=== PATIENT | female | born 1960 | race Caucasian/White ===

== ENCOUNTER 2017-03-01 09:04 | Emergency (ER) | payer BC ==
[2017-03-01] MEDS ORDERED: Triamcinolone Acetonide 40 MG/ML 1 ML MDV IM ONE (09:05)
[2017-03-01 09:13] VITALS: BP 140/70
== END 2017-03-01 09:15 | disposition left against medical advice (07) ==
LOC: MW.ED 09:04
DX: Z53.21 Procedure and treatment not carried out due to patient leaving prior to being seen by health care provider (principal)
CPT/HCPCS: J3301

== ENCOUNTER 2019-07-16 09:30 | Emergency (ER) | payer BC ==
[2019-07-16 10:04] VITALS: BP 146/80; PULSE 104
[2019-07-16] MEDS ORDERED: Albuterol/Ipratropium 3.0-0.5 MG/3 ML Neb Soln NEB ONE ×2 (10:06→10:49)
[2019-07-16] MEDS ORDERED: predniSONE 20 MG Tab PO ONE (10:59)
--- NOTE | 2019-07-16 13:31 | EDM.PDOC ---
ED [facility] GENERAL MEDICAL PROBLEM - General Chief Complaint: Respiratory Problem Stated Complaint: ASTHMA Time Seen by Provider: 07/16/19 09:59 Source of Information: Reports: Patient History Limitations: Reports: No Limitations - History of Present Illness INITIAL COMMENTS - FREE TEXT/NARRATIVE: Patient 58-year-old female with past medical history of severe asthma. She is on numerous inhalers and oral steroids at baseline. Patient reports feeling some upper respiratory tract symptoms which seem to exacerbated her asthma. She states she feels congested in the nose and having sore throat. Patient reports increasing wheezing and shortness of breath at home. Denies anything that makes it better or worse. Patient reports poor peak flow at baseline. Patient denies any productive cough or fevers. She denies myalgias, vomiting, diarrhea. In addition to that documented in the HPI above, the additional ROS was obtained : Systems unable to be obtained secondary to patient's mental status I have reviewed the triage vital signs Const: Well nourished, well developed, appears stated age Eyes: PERRL, no conjunctival injection HENT: Contusion to the left forehead. NCAT, Neck supple without meningismus CV: RRR, Warm, well-perfused extremities RESP: Bilateral wheezes noted. Able to speak full sentences. GI: soft, non-tender, non-distended, no masses MSK: No gross deformities appreciated Skin: Warm, dry. No rashes Neuro: Alert, pediatric speech therapist II-XII grossly intact. Sensation and motor function of extremities grossly intact. Psych: Not agitated Assessment and plan: Patient is a 58-year-old female complaining of asthma exacerbation. Patient given several rounds of duo nebs in the ER and 40 mg prednisone. Patient reports improvement of symptoms. Patient still wheezing but no evidence of hypoxia on discharge. Patient offered to stay in the emergency department longer for further observation however she states she feels better and wished to go home. All questions addressed and answered. Patient understands risks and benefits. Patient given strict return precautions. Broad differential diagnosis considered including pneumonia, influenza, pulmonary embolism. However, based on clinical exam and patient's prolonged asthma history of believe this is consistent with asthma exacerbation. I do not believe this patient needs antibiotics or CT scan. - Related Data Allergies Allergy/AdvReac Type Severity Reaction Status Date / Time meperidine HCl [From Demerol] Allergy Cannot Verified 07/16/19 10:00 Remember Home Meds: Home Meds Fluticasone/Salmeterol [Advair 500-50] 1 puff INH BID 06/07/15 [History] Montelukast Sodium [Singulair] 10 mg PO DAILY 06/07/15 [History] Progesterone, Micronized [Progesterone] 100 mg PO BEDTIME 06/07/15 [History] estradioL [Climara] 1 patch TRDERM ASDIRECTED 06/07/15 [History] predniSONE [Prednisone] 10 mg PO DAILY 07/16/19 [History] predniSONE [Prednisone] 40 mg PO DAILY 4 Days #4 tablet 07/16/19 [Rx] Past Medical History HEENT History: Reports: Impaired Vision Respiratory History: Reports: Asthma 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 Other Oncologic History: Pre-cancerous tissue removed from cervix. - Infectious Disease History Infectious Disease History: Reports: Chicken Pox, Measles, Mumps - Past Surgical History GI Surgical History: Reports: Appendectomy, Cholecystectomy, Colonoscopy Social & Family History - Family History Family Medical History: Noncontributory Respiratory: Reports: Other (See Below) Other Respiratory Family Hisory: father: asbestos in the lungs. GI: Reports: Colon Polyps OBGYN: Reports: Endocrine/Metabolic: Reports: Diabetes, type II Oncologic: Reports: Breast, Prostate - Tobacco Use Smoking Status *Q: Never Smoker Second Hand Smoke Exposure: No - Caffeine Use Caffeine Use: Reports: None - Recreational Drug Use Recreational Drug Use: No ED ROS GENERAL - Review of Systems Review Of Systems: See Below ED EXAM, GENERAL - Physical Exam Exam: See Below Course - Vital Signs Last Recorded V/S: Last Vital Signs Temp 37.2 C 07/16/19 10:02 Pulse 104 H 07/16/19 10:02 Resp 18 07/16/19 10:02 BP 146/80 H 07/16/19 10:02 Pulse Ox 92 L 07/16/19 13:45 - Orders/Labs/Meds Meds: Medications Discontinued Medications Generic Name Dose Route Start Last Admin Trade Name Freq PRN Reason Stop Dose Admin Albuterol/Ipratropium 3 ml 07/16/19 10:06 07/16/19 10:16 Duoneb 3.0-0.5 Mg/3 Ml NEB 07/16/19 10:07 3 ml ONETIME ONE Administration Albuterol/Ipratropium 3 ml 07/16/19 10:49 07/16/19 10:56 Duoneb 3.0-0.5 Mg/3 Ml NEB 07/16/19 10:50 3 ml ONETIME ONE Administration Prednisone 40 mg 07/17/19 10:49 Prednisone PO 07/17/19 10:50 ONETIME ONE Prednisone 40 mg 07/16/19 10:59 07/16/19 11:05 Prednisone PO 07/16/19 11:00 40 mg ONETIME ONE Administration Departure - Departure Time of Disposition: 16:03 Disposition: Home, Self-Care 01 Clinical Impression: Asthma exacerbation - Discharge Information Prescriptions: predniSONE [Prednisone] 40 mg PO DAILY 4 Days #4 tablet Instructions: Asthma, Adult, [id number] Referrals: Neil Samuel MD [Primary Care Provider] - Forms: ED Department Discharge Additional Instructions: The following information is given to patients seen in the emergency department who are being discharged to home. This information is to outline your options for follow-up care. We provide all patients seen in our emergency department with a follow-up referral. The need for follow-up, as well as the timing and circumstances, are variable depending upon the specifics of your emergency department visit. If you don't have a primary care physician on staff, we will provide you with a referral. We always advise you to contact your personal physician following an emergency department visit to inform them of the circumstance of the visit and for follow-up with them and/or the need for any referrals to a consulting specialist. The emergency department will also refer you to a specialist when appropriate. This referral assures that you have the opportunity for follow-up care with a specialist. All of these measure are taken in an effort to provide you with optimal care, which includes your follow-up. Under all circumstances we always encourage you to contact your private physician who remains a resource for coordinating your care. When calling for follow-up care, please make the office aware that this follow-up is from your recent emergency room visit. If for any reason you are refused follow-up, please contact the [facility] Emergency Department at and asked to speak to the emergency department charge nurse. [facility] [address] [place] [address] [facility] [address] [place] [id number] Return to the ER immediately for worsening of breathing or any other concerns. Sepsis Event Note - Evaluation Sepsis Screening Result: No Definite Risk - Focused Exam Date Exam was Performed: 07/17/19 Time Exam was Performed: 12:18
[2019-07-17] MEDS ORDERED: predniSONE 20 MG Tab PO ONE (10:49)
== END 2019-07-16 13:46 | disposition home or self-care (01) ==
LOC: MW.ED 09:30
DX: J45.901 Unspecified asthma with (acute) exacerbation (principal); Z88.5 Allergy status to narcotic agent; Z79.51 Long term (current) use of inhaled steroids; Z79.52 Long term (current) use of systemic steroids
CPT/HCPCS: 94640; 99284; A9270; J7620-GY

== ENCOUNTER 2019-09-19 15:52 | Observation (INO) | payer BC ==
[2019-09-19] MEDS ORDERED: Albuterol/Ipratropium 3.0-0.5 MG/3 ML Neb Soln NEB ONE ×2 (16:07→17:08)
[2019-09-19] MEDS ORDERED: Dexamethasone 10 MG/ML SDV IVPUSH ONE (16:25)
--- NOTE | 2019-09-19 17:00 | CR ---
INDICATION: Cough. TECHNIQUE: Two-view chest. COMPARISON: March 05, 2017. FINDINGS: Clear lungs. Normal heart size and pulmonary vascularity. Mild spurring of the lower thoracic spine. Surgical clips right upper quadrant. IMPRESSION: No acute cardiopulmonary process identified. Dictated by Lionel Streeter MD @ Sep 19 2019 4:58PM Signed by Dr. Lionel Streeter @ Sep 19 2019 4:58PM
[2019-09-19 17:54] LABS: CARBON DIOXIDE,CO2 24.1 mmol/L (21.0-32.0); POTASSIUM,K 4.1 mmol/L (3.5-5.1)
[2019-09-19] MEDS ORDERED: Albuterol 6.7 GM Inhaler INH ONE ×2 (19:53→21:12)
--- NOTE | 2019-09-19 20:05 | EDM.PDOC ---
ED HPI GENERAL MEDICAL PROBLEM - General Chief Complaint: Respiratory Problem Stated Complaint: ASTHMA Time Seen by Provider: 09/19/19 16:00 - History of Present Illness INITIAL COMMENTS - FREE TEXT/NARRATIVE: 56 y/o female, history of asthma, presenting to ED for two weeks of worsening cough and dyspnea. similar to prior espisodes of asthma exacerbation. denied fever. mild pleuritic discomfort with cough. no leg swelling. no calf pain. patient reports she has been taking steroids that did not help, she is actually finishing off a taper. denies other associated symptoms. chest Pain Score (Numeric/FACES): 2 - Related Data Allergies Allergy/AdvReac Type Severity Reaction Status Date / Time meperidine HCl [From Demerol] Allergy Vomiting Verified 09/20/19 01:35 Home Meds: Home Meds Fluticasone/Salmeterol [Advair 500-50] 1 puff INH BID 06/07/15 [History] Montelukast Sodium [Singulair] 10 mg PO DAILY 06/07/15 [History] Progesterone, Micronized [Progesterone] 100 mg PO DAILY 06/07/15 [History] estradioL [Climara] 1 patch TRDERM ASDIRECTED 06/07/15 [History] predniSONE [Prednisone] 10 mg PO DAILY 07/16/19 [History] Albuterol/Ipratropium [DuoNeb 3.0-0.5 MG/3 ML] 3 ml .XX ASDIRECTED PRN 09/19/19 [History] Esomeprazole Magnesium [Nexium] 40 mg PO DAILY 09/19/19 [History] Sulfamethoxazole/Trimethoprim [Bactrim Ds Tablet] 1 each PO DAILY 09/19/19 [ History] buPROPion HCL [Bupropion HCl Sr] 100 mg PO DAILY 09/19/19 [History] Past Medical History HEENT History: Reports: Impaired Vision Respiratory History: Reports: Asthma 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 Other Oncologic History: Pre-cancerous tissue removed from cervix. - Infectious Disease History Infectious Disease History: Reports: Chicken Pox, Mumps - Past Surgical History GI Surgical History: Reports: Appendectomy, Cholecystectomy, Colonoscopy Social & Family History - Family History Family Medical History: Noncontributory Respiratory: Reports: Other (See Below) Other Respiratory Family Hisory: father: asbestos in the lungs. GI: Reports: Colon Polyps OBGYN: Reports: Endocrine/Metabolic: Reports: Diabetes, type II Oncologic: Reports: Breast, Prostate - Tobacco Use Smoking Status *Q: Never Smoker - Caffeine Use Caffeine Use: Reports: None - Recreational Drug Use Recreational Drug Use: No ED ROS GENERAL - Review of Systems Review Of Systems: Comprehensive ROS is negative, except as noted in HPI. ED EXAM, GENERAL - Physical Exam Exam: See Below Exam Limited By: No Limitations General Appearance: No Apparent Distress Ears: Normal External Exam Nose: Normal Inspection Head: Atraumatic Neck: Normal Inspection Respiratory/Chest: Rhonchi, Wheezing Cardiovascular: Normal Peripheral Pulses, Regular Rate, Rhythm, No Edema, No Gallop, No JVD, No Murmur, No Rub GI/Abdominal: Soft, Non-Tender Extremities: Normal Inspection, No Pedal Edema Neurological: Alert, Oriented Psychiatric: Normal Affect Skin Exam: Warm Course - Vital Signs Last Recorded V/S: Last Vital Signs Temp 96.2 F L 09/20/19 12:00 Pulse 105 H 09/20/19 12:00 Resp 20 09/20/19 12:00 BP 136/57 L 09/20/19 12:00 Pulse Ox 95 09/20/19 12:00 - Orders/Labs/Meds Orders: Active Orders 24 hr Category Date Time Status CORONAVIRUS COVID-19 PCR PHL [MREF] Stat Lab 09/19/19 19:11 Received Isolation [COMM] Routine Oth 09/19/19 18:45 Active Medication Orders Acetaminophen (Tylenol) 650 mg PO Q4H PRN PRN Reason: Pain (Mild 1-3)/fever Albuterol (Proventil Neb Soln) 2.5 mg NEB Q2H PRN PRN Reason: Shortness Of Breath/wheezing Albuterol/Ipratropium (Duoneb 3.0-0.5 Mg/3 Ml) 3 ml NEB Q6HRRT [facility] Last Admin: 09/20/19 11:36 Dose: 3 ml Bupropion HCl (Wellbutrin) 100 mg PO DAILY [facility] Last Admin: 09/20/19 08:38 Dose: 100 mg Lactated Ringer's (Ringers, Lactated) 1,000 mls @ 125 mls/hr IV ASDIRECTED [facility] Last Admin: 09/20/19 05:32 Dose: 125 mls/hr Infusion: 09/20/19 05:32 Dose: 125 mls/hr Admin: 09/19/19 21:36 Dose: 125 mls/hr Azithromycin 500 mg/ Sodium (Chloride) 250 mls @ 250 mls/hr IV DAILY [facility] Last Admin: 09/20/19 08:40 Dose: 250 mls/hr Infusion: 09/19/19 22:41 Dose: 250 mls/hr Admin: 09/19/19 21:41 Dose: 250 mls/hr Methylprednisolone Sodium Succinate (Solu-Medrol) 40 mg IVPUSH Q12H [facility] Last Admin: 09/20/19 08:40 Dose: 40 mg Montelukast Sodium (Singulair) 10 mg PO BEDTIME [facility] Last Admin: 09/19/19 21:36 Dose: Non-Formulary Medication (Estradiol [Climara]) 1 patch TRDERM ASDIRECTED [facility] Esomeprazole Magnesium [Nexium] 40 Mg 1 each PO DAILY [facility] Last Admin: 09/20/19 09:01 Dose: Progesterone, Micronized [ Progesterone] 100 Mg 1 each PO DAILY [facility] Last Admin: 09/20/19 09:02 Dose: Labs: Laboratory Tests 09/19/19 09/19/19 09/19/19 Range/Units 17:25 17:25 17:25 WBC 7.81 (4.0-11.0) K/uL RBC 5.26 (4.30-5.90) M/uL Hgb 15.3 (12.0-16.0) g/dL Hct 45.4 (36.0-46.0) % MCV 86.3 (80.0-98.0) fL MCH 29.1 (27.0-32.0) pg MCHC 33.7 (31.0-37.0) g/dL RDW Std Deviation 39.7 (28.0-62.0) fl RDW Coeff of Katherine 13 (11.0-15.0) % Plt Count 253 (150-400) K/uL MPV 8.60 (7.40-12.00) fL Nucleated RBC % 0.0 /100WBC Nucleated RBCs # 0 K/uL Sodium 138 (136-145) mmol/L Potassium 4.1 (3.5-5.1) mmol/L Chloride 102 (98-107) mmol/L Carbon Dioxide 24.1 (21.0-32.0) mmol/L BUN 18 (7.0-18.0) mg/dL Creatinine 1.2 H (0.6-1.0) mg/dL Est Cr Clr Drug Dosing 41.40 mL/min Estimated GFR (MDRD) 46.5 ml/min Glucose 157 H (74-106) mg/dL Calcium 9.4 (8.5-10.1) mg/dL Ferritin (8-252) ng/mL Total Bilirubin 0.3 (0.2-1.0) mg/dL Direct Bilirubin 0.10 (0.0-0.5) mg/dL Indirect Bilirubin 0.20 AST 27 (15-37) IU/L ALT 36 (14-63) IU/L Alkaline Phosphatase 127 H (46-116) U/L Total Protein 7.9 (6.4-8.2) g/dL Albumin 3.9 (3.4-5.0) g/dL Globulin 4.0 (2.6-4.0) g/dL Albumin/Globulin Ratio 1.0 (0.9-1.6) 09/19/19 Range/Units 17:25 WBC (4.0-11.0) K/uL RBC (4.30-5.90) M/uL Hgb (12.0-16.0) g/dL Hct (36.0-46.0) % MCV (80.0-98.0) fL MCH (27.0-32.0) pg MCHC (31.0-37.0) g/dL RDW Std Deviation (28.0-62.0) fl RDW Coeff of Katherine (11.0-15.0) % Plt Count (150-400) K/uL MPV (7.40-12.00) fL Nucleated RBC % /100WBC Nucleated RBCs # K/uL Sodium (136-145) mmol/L Potassium (3.5-5.1) mmol/L Chloride (98-107) mmol/L Carbon Dioxide (21.0-32.0) mmol/L BUN (7.0-18.0) mg/dL Creatinine (0.6-1.0) mg/dL Est Cr Clr Drug Dosing mL/min Estimated GFR (MDRD) ml/min Glucose (74-106) mg/dL Calcium (8.5-10.1) mg/dL Ferritin 97 (8-252) ng/mL Total Bilirubin (0.2-1.0) mg/dL Direct Bilirubin (0.0-0.5) mg/dL Indirect Bilirubin AST (15-37) IU/L ALT (14-63) IU/L Alkaline Phosphatase (46-116) U/L Total Protein (6.4-8.2) g/dL Albumin (3.4-5.0) g/dL Globulin (2.6-4.0) g/dL Albumin/Globulin Ratio (0.9-1.6) Meds: Medications Generic Name Dose Route Start Last Admin Trade Name Freq PRN Reason Stop Dose Admin Acetaminophen 650 mg 09/19/19 20:32 Tylenol PO Q4H PRN Pain (Mild 1-3)/fever Albuterol 2.5 mg 09/20/19 11:32 Proventil Neb Soln NEB Q2H PRN Shortness Of Breath/wheezing Albuterol/Ipratropium 3 ml 09/20/19 12:00 09/20/19 11:36 Duoneb 3.0-0.5 Mg/3 Ml NEB 3 ml Q6HRRT [facility] Administration Bupropion HCl 100 mg 09/20/19 09:00 09/20/19 08:38 Wellbutrin PO 100 mg DAILY [facility] Administration Lactated Ringer's 1,000 mls @ 125 mls/hr 09/19/19 20:45 09/20/19 05:32 Ringers, Lactated IV 125 mls/hr ASDIRECTED [facility] Administration Azithromycin 500 mg/ Sodium 250 mls @ 250 mls/hr 09/19/19 21:00 09/20/19 08: 40 Chloride IV 250 mls/hr DAILY [facility] Administration Methylprednisolone Sodium Succinate 40 mg 09/20/19 09:00 09/20/19 08:40 Solu-Medrol IVPUSH 40 mg Q12H [facility] Administration Montelukast Sodium 10 mg 09/19/19 21:00 09/19/19 21:36 Singulair PO Not Given BEDTIME [facility] Non-Formulary Medication 1 patch 09/20/19 07:45 Estradiol [Climara] TRDERM ASDIRECTED [facility] Esomeprazole 1 each 09/20/19 09:00 09/20/19 09:01 Magnesium [Nexium] PO Not Given 40 Mg DAILY [facility] Progesterone, 1 each 09/20/19 09:00 09/20/19 09:02 Micronized [ PO Not Given Progesterone] 100 Mg DAILY [facility] Discontinued Medications Generic Name Dose Route Start Last Admin Trade Name Jasvirq PRN Reason Stop Dose Admin Albuterol 0 gm 09/19/19 19:53 09/19/19 21:34 Proventil Hfa INH 09/19/19 19:54 2 inhalation ONETIME ONE Administration Albuterol Confirm 09/19/19 21:12 Proventil Hfa Administered 09/19/19 21:13 Dose 6.7 gm INH .STK-MED ONE Albuterol/Ipratropium 3 ml 09/19/19 16:07 09/19/19 16:17 Duoneb 3.0-0.5 Mg/3 Ml NEB 09/19/19 16:08 3 ml ONETIME ONE Administration Albuterol/Ipratropium 3 ml 09/19/19 17:08 09/19/19 17:14 Duoneb 3.0-0.5 Mg/3 Ml NEB 09/19/19 17:09 3 ml ONETIME ONE Administration Albuterol/Ipratropium 3 ml 09/19/19 20:32 Duoneb 3.0-0.5 Mg/3 Ml NEB Q4HRRT PRN Shortness Of Breath/wheezing Dexamethasone 10 mg 09/19/19 16:25 09/19/19 16:51 Dexamethasone IVPUSH 09/19/19 16:26 10 mg ONETIME ONE Administration Sodium Phosphate 250 mg 09/20/19 07:36 09/20/19 08:40 Neutra-Phos PO 09/20/19 07:37 250 mg ONETIME ONE Administration - Re-Assessments/Exams Free Text/Narrative Re-Assessment/Exam: 09/19/19 20:08 exam and presentation consistent with asthma exacerbation. she reports symptoms feel like her usual asthma. given decradron and nebs. flu neg. CXR no pna. Still with mild hypoxia. will admit to medicine. case discussed with Dr Anna. 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 Departure - Departure Time of Disposition: 20:10 Disposition: Admitted As Inpatient 68 Clinical Impression: Asthma exacerbation - Discharge Information Sepsis Event Note - Evaluation Sepsis Screening Result: No Definite Risk - Focused Exam Date Exam was Performed: 09/20/19 Time Exam was Performed: 13:28 - My Orders Last 24 Hours: My Active Orders 09/19/19 18:45 Isolation [COMM] Routine 09/19/19 19:11 CORONAVIRUS COVID-19 PCR PHL [MREF] Stat - Assessment/Plan Last 24 Hours: My Active Orders 09/19/19 18:45 Isolation [COMM] Routine 09/19/19 19:11 CORONAVIRUS COVID-19 PCR PHL [MREF] Stat
[2019-09-19] MEDS ORDERED: Acetaminophen 325 MG Tab PO PRN (20:32)
[2019-09-19] MEDS ORDERED: Albuterol/Ipratropium 3.0-0.5 MG/3 ML Neb Soln NEB PRN (20:32)
[2019-09-19 20:59] LABS: BILIRUBIN INDIRECT 0.2
[2019-09-19] MEDS: Montelukast 10 MG Tab PO SCH (21:36)
[2019-09-19] MEDS: Lactated Ringers 1,000 ML IV SCH (21:36)
[2019-09-19] MEDS: Azithromycin 500 MG in Sodium Chloride 0.9% 250 ML IV SCH (21:41)
--- NOTE | 2019-09-19 23:37 | PCM.HP.2 ---
H&P History of Present Illness - General Date of Service: 09/19/19 Admit Problem/Dx: Admission Diagnosis/Problem Admission Diagnosis/Problem Asthma with acute exacerbation Source of Information: Patient, Provider History Limitations: Reports: No Limitations - History of Present Illness Initial Comments - Free Text/Narative: 56 y/o female, history of asthma since 2014, hospitalized once never intubated, presenting to ED with c/o of two weeks of worsening cough and dyspnea. Denied fever, chills, N/V/D, associated with mild pleuritic discomfort with cough. Patient reports she has been taking steroids at home vthat did not help, She sees a pulmonuloasit and PCP for her asthma control. Has been tested for allergies as well. Denied any other PMH. In the ER was found to be mildly hypoxic in low 90s. Influenza negative. Labs unremarkable, Started on Nasal cannula for oxygenation, received IV steroids and was admitted fro further care. Onset of Symptoms: Reports: Gradual Duration of Symptoms: Reports: Day(s): Improves with: Reports: None Worsens with: Reports: None chest Pain Score (Numeric/FACES): 2 - Related Data Allergies/Adverse Reactions: Allergies Allergy/AdvReac Type Severity Reaction Status Date / Time meperidine HCl [From Demerol] Allergy Cannot Verified 09/19/19 16:16 Remember Home Medications: Home Meds Fluticasone/Salmeterol [Advair 500-50] 1 puff INH BID 06/07/15 [History] Montelukast Sodium [Singulair] 10 mg PO DAILY 06/07/15 [History] Progesterone, Micronized [Progesterone] 100 mg PO DAILY 06/07/15 [History] estradioL [Climara] 1 patch TRDERM ASDIRECTED 06/07/15 [History] predniSONE [Prednisone] 10 mg PO DAILY 07/16/19 [History] Albuterol/Ipratropium [DuoNeb 3.0-0.5 MG/3 ML] 3 ml .XX ASDIRECTED PRN 09/19/19 [History] Esomeprazole Magnesium [Nexium] 40 mg PO DAILY 09/19/19 [History] Sulfamethoxazole/Trimethoprim [Bactrim Ds Tablet] 1 each PO DAILY 09/19/19 [ History] buPROPion HCL [Bupropion HCl Sr] 100 mg PO DAILY 09/19/19 [History] Past Medical History HEENT History: Reports: Impaired Vision Cardiovascular History: Reports: Heart Murmur Respiratory History: Reports: Asthma Gastrointestinal History: Reports: GERD, Helicobacter Pylori, PUD Genitourinary History: Reports: Other (See Below) Other Genitourinary History: elevated kidney labs once 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 Psychiatric History: Reports: Depression Other Oncologic History: Pre-cancerous tissue removed from cervix. - Infectious Disease History Infectious Disease History: Reports: Chicken Pox, Mumps - Past Surgical History GI Surgical History: Reports: Appendectomy, Cholecystectomy, Colonoscopy Social & Family History - Family History Family Medical History: Noncontributory Respiratory: Reports: Other (See Below) Other Respiratory Family Hisory: father: asbestos in the lungs. GI: Reports: Colon Polyps OBGYN: Reports: Endocrine/Metabolic: Reports: Diabetes, type II Oncologic: Reports: Breast, Prostate - Tobacco Use Smoking Status *Q: Former Smoker Used Tobacco, but Quit: Yes Month/Year Tobacco Last Used: 1989 Second Hand Smoke Exposure: No - Caffeine Use Caffeine Use: Reports: Energy Drinks Other Caffeine Use: occasional, not daily - Recreational Drug Use Recreational Drug Use: No H&P Review of Systems - Review of Systems: Review Of Systems: See Below General: Reports: Weakness, Decreased Appetite. Denies: Fever, Chills, Malaise HEENT: Denies: Dysphasia, Ear Pain, Eye Pain, Rhinitis Pulmonary: Reports: Shortness of Breath, Wheezing, Cough. Denies: Pleuritic Chest Pain, Sputum Cardiovascular: Reports: Dyspnea on Exertion. Denies: Chest Pain, Palpitations Gastrointestinal: Denies: Abdominal Pain, Anorexia, Black Stool Genitourinary: Denies: Dysuria, Frequency, Burning Musculoskeletal: Denies: Neck Pain, Shoulder Pain, Arm Pain Skin: Denies: Cyanosis, Jaundice, Mottled Exam - Exam Exam: See Below - Vital Signs Vital Signs: Last Vital Signs Temp 36.1 C 09/19/19 20:32 Pulse 97 09/19/19 20:32 Resp 20 09/19/19 20:32 BP 139/56 L 09/19/19 20:32 Pulse Ox 95 09/19/19 20:32 Weight: 93.758 kg - Exam Quality Assessment: Supplemental Oxygen General: Alert, Cooperative HEENT: Conjunctiva Clear Neck: Supple, Trachea Midline Lungs: Clear to Auscultation, Decreased Breath Sounds Cardiovascular: Regular Rate, Regular Rhythm, Normal S1, Normal S2 Peripheral Pulses: 3+: Dorsalis Pedis (L), Dorsalis Pedis (R) Skin: Warm, Intact - Patient Data Lab Results Last 24 hrs: Laboratory Results - last 24 hr 09/19/19 09/19/19 09/19/19 Range/Units 17:25 17:25 17:25 WBC 7.81 (4.0-11.0) K/uL RBC 5.26 (4.30-5.90) M/uL Hgb 15.3 (12.0-16.0) g/dL Hct 45.4 (36.0-46.0) % MCV 86.3 (80.0-98.0) fL MCH 29.1 (27.0-32.0) pg MCHC 33.7 (31.0-37.0) g/dL RDW Std Deviation 39.7 (28.0-62.0) fl RDW Coeff of Katherine 13 (11.0-15.0) % Plt Count 253 (150-400) K/uL MPV 8.60 (7.40-12.00) fL Nucleated RBC % 0.0 /100WBC Nucleated RBCs # 0 K/uL Sodium 138 (136-145) mmol/L Potassium 4.1 (3.5-5.1) mmol/L Chloride 102 (98-107) mmol/L Carbon Dioxide 24.1 (21.0-32.0) mmol/L BUN 18 (7.0-18.0) mg/dL Creatinine 1.2 H (0.6-1.0) mg/dL Est Cr Clr Drug Dosing 41.40 mL/min Estimated GFR (MDRD) 46.5 ml/min Glucose 157 H (74-106) mg/dL Calcium 9.4 (8.5-10.1) mg/dL Ferritin (8-252) ng/mL Total Bilirubin 0.3 (0.2-1.0) mg/dL Direct Bilirubin 0.10 (0.0-0.5) mg/dL Indirect Bilirubin 0.20 AST 27 (15-37) IU/L ALT 36 (14-63) IU/L Alkaline Phosphatase 127 H (46-116) U/L Total Protein 7.9 (6.4-8.2) g/dL Albumin 3.9 (3.4-5.0) g/dL Globulin 4.0 (2.6-4.0) g/dL Albumin/Globulin Ratio 1.0 (0.9-1.6) 09/19/19 Range/Units 17:25 WBC (4.0-11.0) K/uL RBC (4.30-5.90) M/uL Hgb (12.0-16.0) g/dL Hct (36.0-46.0) % MCV (80.0-98.0) fL MCH (27.0-32.0) pg MCHC (31.0-37.0) g/dL RDW Std Deviation (28.0-62.0) fl RDW Coeff of Katherine (11.0-15.0) % Plt Count (150-400) K/uL MPV (7.40-12.00) fL Nucleated RBC % /100WBC Nucleated RBCs # K/uL Sodium (136-145) mmol/L Potassium (3.5-5.1) mmol/L Chloride (98-107) mmol/L Carbon Dioxide (21.0-32.0) mmol/L BUN (7.0-18.0) mg/dL Creatinine (0.6-1.0) mg/dL Est Cr Clr Drug Dosing mL/min Estimated GFR (MDRD) ml/min Glucose (74-106) mg/dL Calcium (8.5-10.1) mg/dL Ferritin 97 (8-252) ng/mL Total Bilirubin (0.2-1.0) mg/dL Direct Bilirubin (0.0-0.5) mg/dL Indirect Bilirubin AST (15-37) IU/L ALT (14-63) IU/L Alkaline Phosphatase (46-116) U/L Total Protein (6.4-8.2) g/dL Albumin (3.4-5.0) g/dL Globulin (2.6-4.0) g/dL Albumin/Globulin Ratio (0.9-1.6) Result Diagrams: 09/19/19 17:25 09/19/19 17:25 Reynaldo Results Last 24 hrs: Microbiology 09/19/19 19:11 Influenza Type A Antigen Screen - Final Nasopharyngeal Swab NEGATIVE INFLUENZA A VIRUS AG REFERENCE RANGE: NEGATIVE Influenza Type B Antigen Screen - Final NEGATIVE INFLUENZA B VIRUS AG REFERENCE RANGE: NEGATIVE Sepsis Event Note - Evaluation Sepsis Screening Result: No Definite Risk - Focused Exam Vital Signs: Vital Signs Temp Pulse Resp BP Pulse Ox 09/19/19 20:32 36.1 C 97 20 139/56 L 95 09/19/19 20:09 36.5 C 97 18 128/76 96 09/19/19 18:49 86 18 94 L 09/19/19 17:10 108 H 20 174/94 H 91 L 09/19/19 16:12 35.9 C L 109 H 20 182/100 H 93 L Date Exam was Performed: 09/19/19 Time Exam was Performed: 23:38 - Problem List (1) Asthma exacerbation SNOMED Code(s): 012121766 ICD Code: J45.901 - UNSPECIFIED ASTHMA WITH (ACUTE) EXACERBATION Status: Acute Current Visit: Yes Problem List Initiated/Reviewed/Updated: Yes Orders Last 24hrs: Active Orders 24 hr Category Date Time Status Admission Status [Patient Status] [ADT] Stat ADT 09/19/19 19:09 Active Ambulate [RC] ASDIRECTED Care 09/19/19 20:32 Active Antiembolic Devices [RC] PER UNIT ROUTINE Care 09/19/19 20:33 Active Oxygen Therapy [RC] PRN Care 09/19/19 20:32 Active Pulse Oximetry [RC] CONTINUOUS Care 09/19/19 20:32 Active RT Aerosol Therapy [RC] ASDIRECTED Care 09/19/19 16:07 Active RT Aerosol Therapy [RC] ASDIRECTED Care 09/19/19 17:08 Active RT Aerosol Therapy [RC] ASDIRECTED Care 09/19/19 20:33 Active RT Post Treatment Assessment [RC] Click to Edit Care 09/19/19 19:54 Active RT Pre-Treatment Assessment [RC] Click to Edit Care 09/19/19 19:54 Active Telemetry Monitoring [Cardiac Monitoring] [RC] Q8H Care 09/19/19 20:55 Active VTE/DVT Education [RC] PER UNIT ROUTINE Care 09/19/19 20:32 Active Vital Signs [RC] Q4H Care 09/19/19 20:32 Active Regular Diet [DIET] Diet 09/20/19 Breakfast Active CORONAVIRUS (COVID-19) PCR [MREF] Stat Lab 09/19/19 19:11 Received Acetaminophen [Tylenol] Med 09/19/19 20:32 Active 650 mg PO Q4H PRN Albuterol/Ipratropium [DuoNeb 3.0-0.5 MG/3 ML] Med 09/19/19 20:32 Active 3 ml NEB Q4HRRT PRN Azithromycin [Zithromax] 500 mg Med 09/19/19 21:00 Active Sodium Chloride 0.9% [Normal Saline (AdvBag)] 250 ml IV DAILY Lactated Ringers [Ringers, Lactated] 1,000 ml Med 09/19/19 20:45 Active IV ASDIRECTED Montelukast [Singulair] Med 09/19/19 21:00 Active 10 mg PO BEDTIME methylPREDNISolone Sod Succ [Solu-MEDROL] Med 09/20/19 09:00 Active 40 mg IVPUSH Q12H Isolation [COMM] Routine Oth 09/19/19 18:45 Active Sequential Compression Device [OM.PC] Per Unit Routine Oth 09/19/19 20:32 Ordered Resuscitation Status Routine Resus Stat 09/19/19 20:32 Ordered Medication Orders Acetaminophen (Tylenol) 650 mg PO Q4H PRN PRN Reason: Pain (Mild 1-3)/fever Albuterol/Ipratropium (Duoneb 3.0-0.5 Mg/3 Ml) 3 ml NEB Q4HRRT PRN PRN Reason: Shortness Of Breath/wheezing Lactated Ringer's (Ringers, Lactated) 1,000 mls @ 125 mls/hr IV ASDIRECTED [facility] Last Admin: 09/19/19 21:36 Dose: 125 mls/hr Azithromycin 500 mg/ Sodium (Chloride) 250 mls @ 250 mls/hr IV DAILY [facility] Last Admin: 09/19/19 21:41 Dose: 250 mls/hr Methylprednisolone Sodium Succinate (Solu-Medrol) 40 mg IVPUSH Q12H [facility] Montelukast Sodium (Singulair) 10 mg PO BEDTIME [facility] Last Admin: 09/19/19 21:36 Dose: Assessment/Plan Comment:: 58 y/o F admitted for asthma exacerbation, possible covid-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
[2019-09-20] MEDS: Lactated Ringers 1,000 ML IV SCH ×2 (05:32→15:55)
[2019-09-20 06:16] LABS: CARBON DIOXIDE,CO2 26.5 mmol/L (21.0-32.0); POTASSIUM,K 4.3 mmol/L (3.5-5.1)
[2019-09-20] MEDS ORDERED: Phosphorus #1 250 MG Tab PO ONE (07:36)
[2019-09-20] MEDS ORDERED: ESTRADIOL TRDERM SCH (07:45)
[2019-09-20] MEDS: buPROPion 100 MG Tab PO SCH (08:38)
[2019-09-20] MEDS: Azithromycin 500 MG in Sodium Chloride 0.9% 250 ML IV SCH (08:40)
[2019-09-20] MEDS: methylPREDNISolone Sodium Succinate 40 MG/1 ML SDV IVPUSH SCH ×2 (08:40→20:23)
[2019-09-20] MEDS: Esomeprazole Magnesium [Nexium] 40 MG PO SCH (09:01)
[2019-09-20] MEDS: PROGESTERONE MICRONIZED 100 MG PO SCH (09:02)
--- NOTE | 2019-09-20 09:49 | PCM.PN ---
- General Info Date of Service: 09/20/19 Subjective Update: Patient on 2L NC overnight. Reports breathing a bit better today. Denies any fevers, chills, n/v/d overnight. Tolerating oral diet well. - Patient Data Vitals - Most Recent: Last Vital Signs Temp 96.0 F L 09/20/19 05:23 Pulse 84 09/20/19 05:23 Resp 18 09/20/19 05:23 BP 124/52 L 09/20/19 05:23 Pulse Ox 95 09/20/19 05:23 Weight - Most Recent: 206 lb 11.2 oz I&O - Last 24 Hours: Intake & Output 09/19/19 09/20/19 09/20/19 22:59 06:59 14:59 Intake Total 1263 Output Total 0 Balance 1263 Lab Results Last 24 Hours: Laboratory Results - last 24 hr 09/19/19 09/19/19 09/19/19 Range/Units 17:25 17:25 17:25 WBC 7.81 (4.0-11.0) K/uL RBC 5.26 (4.30-5.90) M/uL Hgb 15.3 (12.0-16.0) g/dL Hct 45.4 (36.0-46.0) % MCV 86.3 (80.0-98.0) fL MCH 29.1 (27.0-32.0) pg MCHC 33.7 (31.0-37.0) g/dL RDW Std Deviation 39.7 (28.0-62.0) fl RDW Coeff of Katherine 13 (11.0-15.0) % Plt Count 253 (150-400) K/uL MPV 8.60 (7.40-12.00) fL Neut % (Auto) (48.0-80.0) % Lymph % (Auto) (16.0-40.0) % [place] % (Auto) (0.0-15.0) % Eos % (Auto) (0.0-7.0) % Baso % (Auto) (0.0-1.5) % Neut # (Auto) (1.4-5.7) K/uL Lymph # (Auto) (0.6-2.4) K/uL [place] # (Auto) (0.0-0.8) K/uL Eos # (Auto) (0.0-0.7) K/uL Baso # (Auto) (0.0-0.1) K/uL Nucleated RBC % 0.0 /100WBC Nucleated RBCs # 0 K/uL Sodium 138 (136-145) mmol/L Potassium 4.1 (3.5-5.1) mmol/L Chloride 102 (98-107) mmol/L Carbon Dioxide 24.1 (21.0-32.0) mmol/L BUN 18 (7.0-18.0) mg/dL Creatinine 1.2 H (0.6-1.0) mg/dL Est Cr Clr Drug Dosing 41.40 mL/min Estimated GFR (MDRD) 46.5 ml/min Glucose 157 H (74-106) mg/dL Calcium 9.4 (8.5-10.1) mg/dL Phosphorus (2.6-4.7) mg/dL Magnesium (1.8-2.4) mg/dL Ferritin (8-252) ng/mL Total Bilirubin 0.3 (0.2-1.0) mg/dL Direct Bilirubin 0.10 (0.0-0.5) mg/dL Indirect Bilirubin 0.20 AST 27 (15-37) IU/L ALT 36 (14-63) IU/L Alkaline Phosphatase 127 H (46-116) U/L Total Protein 7.9 (6.4-8.2) g/dL Albumin 3.9 (3.4-5.0) g/dL Globulin 4.0 (2.6-4.0) g/dL Albumin/Globulin Ratio 1.0 (0.9-1.6) 09/19/19 09/20/19 09/20/19 Range/Units 17:25 05:35 05:35 WBC 11.16 H (4.0-11.0) K/uL RBC 4.65 (4.30-5.90) M/uL Hgb 13.3 (12.0-16.0) g/dL Hct 39.9 (36.0-46.0) % MCV 85.8 (80.0-98.0) fL MCH 28.6 (27.0-32.0) pg MCHC 33.3 (31.0-37.0) g/dL RDW Std Deviation 39.3 (28.0-62.0) fl RDW Coeff of Katherine 12 (11.0-15.0) % Plt Count 239 (150-400) K/uL MPV 8.60 (7.40-12.00) fL Neut % (Auto) 87.3 H (48.0-80.0) % Lymph % (Auto) 9.3 L (16.0-40.0) % [place] % (Auto) 3.3 (0.0-15.0) % Eos % (Auto) 0.0 (0.0-7.0) % Baso % (Auto) 0.1 (0.0-1.5) % Neut # (Auto) 9.7 H (1.4-5.7) K/uL Lymph # (Auto) 1.0 (0.6-2.4) K/uL Hart # (Auto) 0.4 (0.0-0.8) K/uL Eos # (Auto) 0.0 (0.0-0.7) K/uL Baso # (Auto) 0.0 (0.0-0.1) K/uL Nucleated RBC % 0.0 /100WBC Nucleated RBCs # 0 K/uL Sodium 140 (136-145) mmol/L Potassium 4.3 (3.5-5.1) mmol/L Chloride 105 (98-107) mmol/L Carbon Dioxide 26.5 (21.0-32.0) mmol/L BUN 14 (7.0-18.0) mg/dL Creatinine 1.0 (0.6-1.0) mg/dL Est Cr Clr Drug Dosing 49.68 mL/min Estimated GFR (MDRD) 57.4 ml/min Glucose 138 H (74-106) mg/dL Calcium 8.8 (8.5-10.1) mg/dL Phosphorus 2.4 L (2.6-4.7) mg/dL Magnesium 2.0 (1.8-2.4) mg/dL Ferritin 97 (8-252) ng/mL Total Bilirubin (0.2-1.0) mg/dL Direct Bilirubin (0.0-0.5) mg/dL Indirect Bilirubin AST (15-37) IU/L ALT (14-63) IU/L Alkaline Phosphatase (46-116) U/L Total Protein (6.4-8.2) g/dL Albumin (3.4-5.0) g/dL Globulin (2.6-4.0) g/dL Albumin/Globulin Ratio (0.9-1.6) [facility] Results Last 24 Hours: Microbiology 09/19/19 19:11 Influenza Type A Antigen Screen - Final Nasopharyngeal Swab NEGATIVE INFLUENZA A VIRUS AG REFERENCE RANGE: NEGATIVE Influenza Type B Antigen Screen - Final NEGATIVE INFLUENZA B VIRUS AG REFERENCE RANGE: NEGATIVE Med Orders - Current: Current Medications Acetaminophen (Tylenol) 650 mg PO Q4H PRN PRN Reason: Pain (Mild 1-3)/fever Albuterol/Ipratropium (Duoneb 3.0-0.5 Mg/3 Ml) 3 ml NEB Q4HRRT PRN PRN Reason: Shortness Of Breath/wheezing Bupropion HCl (Wellbutrin) 100 mg PO DAILY [facility] Last Admin: 09/20/19 08:38 Dose: 100 mg Lactated Ringer's (Ringers, Lactated) 1,000 mls @ 125 mls/hr IV ASDIRECTED [facility] Last Admin: 09/20/19 05:32 Dose: 125 mls/hr Azithromycin 500 mg/ Sodium (Chloride) 250 mls @ 250 mls/hr IV DAILY [facility] Last Admin: 09/20/19 08:40 Dose: 250 mls/hr Methylprednisolone Sodium Succinate (Solu-Medrol) 40 mg IVPUSH Q12H [facility] Last Admin: 09/20/19 08:40 Dose: 40 mg Montelukast Sodium (Singulair) 10 mg PO BEDTIME [facility] Last Admin: 09/19/19 21:36 Dose: Not Given Non-Formulary Medication (Estradiol [Climara]) 1 patch TRDERM ASDIRECTED [facility] Esomeprazole Magnesium [Nexium] 40 Mg 1 each PO DAILY [facility] Last Admin: 09/20/19 09:01 Dose: Not Given Progesterone, Micronized [ Progesterone] 100 Mg 1 each PO DAILY [facility] Last Admin: 09/20/19 09:02 Dose: Not Given Discontinued Medications Albuterol (Proventil Hfa) 0 gm INH ONETIME ONE Stop: 09/19/19 19:54 Last Admin: 09/19/19 21:34 Dose: 2 inhalation Albuterol (Proventil Hfa) Confirm Administered Dose 6.7 gm INH .STK-MED ONE Stop: 09/19/19 21:13 Albuterol/Ipratropium (Duoneb 3.0-0.5 Mg/3 Ml) 3 ml NEB ONETIME ONE Stop: 09/19/19 16:08 Last Admin: 09/19/19 16:17 Dose: 3 ml Albuterol/Ipratropium (Duoneb 3.0-0.5 Mg/3 Ml) 3 ml NEB ONETIME ONE Stop: 09/19/19 17:09 Last Admin: 09/19/19 17:14 Dose: 3 ml Dexamethasone (Dexamethasone) 10 mg IVPUSH ONETIME ONE Stop: 09/19/19 16:26 Last Admin: 09/19/19 16:51 Dose: 10 mg Sodium Phosphate (Neutra-Phos) 250 mg PO ONETIME ONE Stop: 09/20/19 07:37 Last Admin: 09/20/19 08:40 Dose: 250 mg - Exam Quality Assessment: Supplemental Oxygen General: Alert, Oriented, Cooperative, No Acute Distress Lungs: Normal Respiratory Effort, Other (wheezes bilaterally) Cardiovascular: Regular Rate, Regular Rhythm GI/Abdominal Exam: Normal Bowel Sounds, Soft, Non-Tender, No Distention Extremities: Normal Inspection, No Pedal Edema Sepsis Event Note - Evaluation Sepsis Screening Result: No Definite Risk - Focused Exam Vital Signs: Vital Signs Temp Pulse Resp BP Pulse Ox 09/20/19 05:23 96.0 F L 84 18 124/52 L 95 09/19/19 23:57 96.1 F L 73 18 104/59 L 94 L Date Exam was Performed: 09/20/19 Time Exam was Performed: 12:13 - Problem List Review Problem List Initiated/Reviewed/Updated: Yes - My Orders Last 24 Hours: My Active Orders 09/20/19 07:45 estradioL [Climara] 1 patch TRDERM ASDIRECTED 09/20/19 09:00 Patient's Own Medication [Ptom] 1 each PO DAILY Patient's Own Medication [Ptom] 1 each PO DAILY buPROPion [Wellbutrin] 100 mg PO DAILY 09/21/19 05:11 CBC WITH AUTO DIFF [HEME] AM COMPREHENSIVE METABOLIC PN,CMP [CHEM] AM MAGNESIUM [CHEM] AM PHOSPHORUS [CHEM] AM - Plan Plan:: Assessment and Plan: 1. Acute hypoxic respiratory failure secondary to asthma exacerbation: - Patient does not use home oxygen. Continue supplemental oxygen, duonebs q4 prn , IV solumedrol 40 mg BID, montelukast 10 mg qd and azithromycin. COVID 19 test pending. Influenza test negative. Ferritin level normal. Will attempt to wean off oxygen today and check ambulatory oxygen saturation. 2. Past medical history of depression and GERD: - Resume home medications. 3. DVT prophylaxis: SCD's.
[2019-09-20] MEDS ORDERED: Albuterol 0.083% 2.5 MG/3 ML Neb Soln NEB PRN (11:32)
[2019-09-20] MEDS: Albuterol/Ipratropium 3.0-0.5 MG/3 ML Neb Soln NEB SCH ×2 (11:36→17:19)
[2019-09-20] MEDS: Montelukast 10 MG Tab PO SCH (20:18)
[2019-09-21] MEDS: Albuterol/Ipratropium 3.0-0.5 MG/3 ML Neb Soln NEB SCH ×4 (00:38→17:10)
[2019-09-21 06:20] LABS: CARBON DIOXIDE,CO2 27.8 mmol/L (21.0-32.0); POTASSIUM,K 4.4 mmol/L (3.5-5.1)
[2019-09-21] MEDS: Azithromycin 500 MG in Sodium Chloride 0.9% 250 ML IV SCH (09:39)
[2019-09-21] MEDS: methylPREDNISolone Sodium Succinate 40 MG/1 ML SDV IVPUSH SCH (09:39)
[2019-09-21] MEDS: buPROPion 100 MG Tab PO SCH (09:40)
[2019-09-21] MEDS: Esomeprazole Magnesium [Nexium] 40 MG PO SCH (10:06)
[2019-09-21] MEDS: PROGESTERONE MICRONIZED 100 MG PO SCH (10:07)
--- NOTE | 2019-09-21 14:03 | PCM.DCSUM1 ---
Discharge Summary - Hospital Course Free Text/Narrative:: 58-year-old female admitted for acute asthma exacerbation. She has a PMH of depression and GERD. She was started on supplemental oxygen, duonebs and IV solumedrol. She was also started on azithromycin. CXR on admission was negative. Influenza test negative. COVID 19 test currently pending. Patient successfully weaned off of oxygen on day of discharge. Discharged on 2 more days of azithromycin and prednisone 40 mg qd for 4 days. Home medications were resumed. Patient advised to self-quarantine at home until COVID19 test cleared by [facility]. Advised to follow-up with PCP on discharge. - Discharge Data Discharge Date: 09/21/19 Discharge Disposition: Home, Self-Care 01 Condition: Stable - Referral to Home Health Primary Care Physician: Neil Samuel MD - Patient Instructions Diet: Usual Diet as Tolerated Activity: As Tolerated Notify Provider of: Fever, Increased Pain, Swelling and Redness, Drainage, Nausea and/or Vomiting - Discharge Plan *PRESCRIPTION DRUG MONITORING PROGRAM REVIEWED*: Not Applicable *COPY OF PRESCRIPTION DRUG MONITORING REPORT IN PATIENT VISHAL: Not Applicable Prescriptions/Med Rec: Azithromycin 500 mg PO DAILY 2 Days #2 tablet predniSONE [Prednisone] 40 mg PO DAILY 4 Days #8 tablet Home Medications: Home Meds Fluticasone/Salmeterol [Advair 500-50] 1 puff INH BID 06/07/15 [History] Montelukast Sodium [Singulair] 10 mg PO DAILY 06/07/15 [History] Progesterone, Micronized [Progesterone] 100 mg PO DAILY 06/07/15 [History] estradioL [Climara] 1 patch TRDERM ASDIRECTED 06/07/15 [History] Albuterol/Ipratropium [DuoNeb 3.0-0.5 MG/3 ML] 3 ml .XX ASDIRECTED PRN 09/19/19 [History] Esomeprazole Magnesium [Nexium] 40 mg PO DAILY 09/19/19 [History] buPROPion HCL [Bupropion HCl Sr] 100 mg PO DAILY 09/19/19 [History] Azithromycin 500 mg PO DAILY 2 Days #2 tablet 09/21/19 [Rx] predniSONE [Prednisone] 40 mg PO DAILY 4 Days #8 tablet 09/21/19 [Rx] Oxygen Therapy Mode: Room Air Patient Handouts: Azithromycin tablets, Asthma, Adult, [id number], Prednisone tablets Referrals: [facility] [Outside] Neil Samuel MD [Primary Care Provider] - 10/01/19 10:00 am - Discharge Summary/Plan Comment DC Time >30 min.: No - Patient Data Vitals - Most Recent: Last Vital Signs Temp 96.3 F L 09/21/19 11:57 Pulse 97 09/21/19 11:57 Resp 22 H 09/21/19 11:57 BP 159/89 H 09/21/19 11:57 Pulse Ox 97 09/21/19 11:57 Weight - Most Recent: 206 lb 11.2 oz I&O - Last 24 hours: Intake & Output 09/20/19 09/21/19 09/21/19 22:59 06:59 14:59 Intake Total 2228 800 Output Total 1250 Balance 978 800 Lab Results - Last 24 hrs: Laboratory Results - last 24 hr 09/21/19 09/21/19 Range/Units 05:38 05:38 WBC 14.41 H (4.0-11.0) K/uL RBC 4.49 (4.30-5.90) M/uL Hgb 12.8 (12.0-16.0) g/dL Hct 39.1 (36.0-46.0) % MCV 87.1 (80.0-98.0) fL MCH 28.5 (27.0-32.0) pg MCHC 32.7 (31.0-37.0) g/dL RDW Std Deviation 40.9 (28.0-62.0) fl RDW Coeff of Katherine 13 (11.0-15.0) % Plt Count 238 (150-400) K/uL MPV 8.50 (7.40-12.00) fL Neut % (Auto) 90.6 H (48.0-80.0) % Lymph % (Auto) 6.7 L (16.0-40.0) % [place] % (Auto) 2.7 (0.0-15.0) % Eos % (Auto) 0.0 (0.0-7.0) % Baso % (Auto) 0.0 (0.0-1.5) % Neut # (Auto) 13.1 H (1.4-5.7) K/uL Lymph # (Auto) 1.0 (0.6-2.4) K/uL [place] # (Auto) 0.4 (0.0-0.8) K/uL Eos # (Auto) 0.0 (0.0-0.7) K/uL Baso # (Auto) 0.0 (0.0-0.1) K/uL Nucleated RBC % 0.0 /100WBC Nucleated RBCs # 0 K/uL Sodium 142 (136-145) mmol/L Potassium 4.4 (3.5-5.1) mmol/L Chloride 108 H (98-107) mmol/L Carbon Dioxide 27.8 (21.0-32.0) mmol/L BUN 16 (7.0-18.0) mg/dL Creatinine 1.0 (0.6-1.0) mg/dL Est Cr Clr Drug Dosing 49.68 mL/min Estimated GFR (MDRD) 57.4 ml/min Glucose 157 H (74-106) mg/dL Calcium 8.7 (8.5-10.1) mg/dL Phosphorus 3.5 (2.6-4.7) mg/dL Magnesium 2.0 (1.8-2.4) mg/dL Total Bilirubin 0.2 (0.2-1.0) mg/dL AST 14 L (15-37) IU/L ALT 27 (14-63) IU/L Alkaline Phosphatase 98 (46-116) U/L Total Protein 6.1 L (6.4-8.2) g/dL Albumin 3.1 L (3.4-5.0) g/dL Globulin 3.0 (2.6-4.0) g/dL Albumin/Globulin Ratio 1.0 (0.9-1.6) Med Orders - Current: Current Medications Acetaminophen (Tylenol) 650 mg PO Q4H PRN PRN Reason: Pain (Mild 1-3)/fever Albuterol (Proventil Neb Soln) 2.5 mg NEB Q2H PRN PRN Reason: Shortness Of Breath/wheezing Albuterol/Ipratropium (Duoneb 3.0-0.5 Mg/3 Ml) 3 ml NEB Q6HRRT [facility] [place] Last Admin: 09/21/19 11:12 Dose: 3 ml Bupropion HCl (Wellbutrin) 100 mg PO DAILY [facility] [place] Last Admin: 09/21/19 09:40 Dose: 100 mg Azithromycin 500 mg/ Sodium (Chloride) 250 mls @ 250 mls/hr IV DAILY [facility] [place] Last Admin: 09/21/19 09:39 Dose: 250 mls/hr Methylprednisolone Sodium Succinate (Solu-Medrol) 40 mg IVPUSH Q12H [facility] [place] Last Admin: 09/21/19 09:39 Dose: 40 mg Montelukast Sodium (Singulair) 10 mg PO BEDTIME [facility] [place] Last Admin: 09/20/19 20:18 Dose: 10 mg Non-Formulary Medication (Estradiol [Climara]) 1 patch TRDERM ASDIRECTED [facility] [place] Esomeprazole Magnesium [Nexium] 40 Mg 1 each PO DAILY [facility] [place] Last Admin: 09/21/19 10:06 Dose: Not Given Progesterone, Micronized [ Progesterone] 100 Mg 1 each PO DAILY [facility] [place] Last Admin: 09/21/19 10:07 Dose: Not Given Discontinued Medications Albuterol (Proventil Hfa) 0 gm INH ONETIME ONE Stop: 09/19/19 19:54 Last Admin: 09/19/19 21:34 Dose: 2 inhalation Albuterol (Proventil Hfa) Confirm Administered Dose 6.7 gm INH .STK-MED ONE Stop: 09/19/19 21:13 Albuterol/Ipratropium (Duoneb 3.0-0.5 Mg/3 Ml) 3 ml NEB ONETIME ONE Stop: 09/19/19 16:08 Last Admin: 09/19/19 16:17 Dose: 3 ml Albuterol/Ipratropium (Duoneb 3.0-0.5 Mg/3 Ml) 3 ml NEB ONETIME ONE Stop: 09/19/19 17:09 Last Admin: 09/19/19 17:14 Dose: 3 ml Albuterol/Ipratropium (Duoneb 3.0-0.5 Mg/3 Ml) 3 ml NEB Q4HRRT PRN PRN Reason: Shortness Of Breath/wheezing Dexamethasone (Dexamethasone) 10 mg IVPUSH ONETIME ONE Stop: 09/19/19 16:26 Last Admin: 09/19/19 16:51 Dose: 10 mg Lactated Ringer's (Ringers, Lactated) 1,000 mls @ 125 mls/hr IV ASDIRECTED [facility] [place] Last Admin: 09/20/19 15:55 Dose: 125 mls/hr Sodium Phosphate (Neutra-Phos) 250 mg PO ONETIME ONE Stop: 09/20/19 07:37 Last Admin: 09/20/19 08:40 Dose: 250 mg
[2019-09-21 16:00] VITALS: BP 113/60; PULSE 98
== END 2019-09-21 18:00 | disposition home or self-care (01) ==
LOC: MW.ED 15:52 → MW.MS 19:09
PROVIDERS: ADMIT Student in an Organized Health Care Education/Training Program; ATTEND Student in an Organized Health Care Education/Training Program
DX: J45.901 Unspecified asthma with (acute) exacerbation (principal); J96.01 Acute respiratory failure with hypoxia; K21.9 Gastro-esophageal reflux disease without esophagitis; Z79.51 Long term (current) use of inhaled steroids; Z88.5 Allergy status to narcotic agent; Z79.899 Other long term (current) drug therapy; F32.9 Major depressive disorder, single episode, unspecified
CPT/HCPCS: 36415; 71046; 80048; 80053; 80076; 82728; 83735; 84100; 85025; 85027; 87804; 94640; 96374; 99285; A9270; J0456; J1100; J2920; J7050; J7120; U0001; 96361; 96365; 96366; 96375; 96376; 99283; G0378; J7620-GY

== ENCOUNTER 2022-04-14 15:44 | Emergency (ER) | payer BC ==
[2022-04-14 16:13] VITALS: BP 127/98; PULSE 123
[2022-04-14] MEDS: Albuterol/Ipratropium 3.0-0.5 MG/3 ML Neb Soln NEB STA (16:17)
[2022-04-14 17:13] LABS: CARBON DIOXIDE,CO2 31.2 mmol/L (21.0-32.0); POTASSIUM,K 3.5 mmol/L (3.5-5.1)
[2022-04-14] MEDS: Lactated Ringers 1,000 ML IV STA (17:47)
== END 2022-04-14 18:27 | disposition home or self-care (01) ==
LOC: MW.ED 15:44
DX: U07.1 COVID-19 (principal); J12.82 Pneumonia due to coronavirus disease 2019; J45.901 Unspecified asthma with (acute) exacerbation; Z88.5 Allergy status to narcotic agent
CPT/HCPCS: 36415; 71045; 80053; 83605; 83735; 83880; 84484; 85025; 85610; 87635; 99285; J7120; 93010; 99283; J7620-GY; U0002

== ENCOUNTER 2023-07-26 13:07 | Emergency (ER) | payer BC ==
[2023-07-26] MEDS ORDERED: methylPREDNISolone Sodium Succinate 125 MG/2 ML SDV IM ONE (13:11)
[2023-07-26 13:41] VITALS: BP 164/93; PULSE 93
== END 2023-07-26 13:43 | disposition home or self-care (01) ==
LOC: MW.ED 13:07
DX: R06.02 Shortness of breath (principal); J45.909 Unspecified asthma, uncomplicated; K21.9 Gastro-esophageal reflux disease without esophagitis; Z79.899 Other long term (current) drug therapy; Z76.0 Encounter for issue of repeat prescription; Z88.8 Allergy status to other drugs, medicaments and biological substances
CPT/HCPCS: 96372; 99284; J2930; 99283

== ENCOUNTER 2024-01-15 17:06 | Inpatient (IN) | payer BC ==
[2024-01-15] MEDS: Magnesium Sulfate/Water 2 GM in Premix Bag 1 BAG IV ONE (18:07)
[2024-01-15] MEDS: Albuterol/Ipratropium 3.0-0.5 MG/3 ML Neb Soln NEB ONE (18:07)
[2024-01-15] MEDS: Sodium Chloride 0.9% 1,000 ML IV ONE (18:08)
[2024-01-15] MEDS: methylPREDNISolone Sodium Succinate 125 MG/2 ML SDV IVPUSH ONE (18:08)
[2024-01-15 18:19] LABS: BASOPHILS ABSOLUTE AUTO 0.04 K/uL (0.00-0.20); BASOPHILS PERCENT AUTO 0.3 % (0.0-1.0); EOSINOPHILS ABSOLUTE AUTO 0.31 K/uL (0.00-0.45); EOSINOPHILS PERCENT AUTO 2.1 % (0.0-6.0); HEMATOCRIT 44.1 % (37.0-47.0); HEMOGLOBIN 15.3 g/dL (12.0-16.0); IMMATURE GRAN ABSOLUTE AUTO 0.04 K/uL (0.00-0.05); IMMATURE GRAN PERCENT AUTO 0.3 % (0.0-0.4); LYMPHOCYTES ABSOLUTE AUTO 1.61 K/uL (1.00-4.80); LYMPHOCYTES PERCENT AUTO 10.9 % (24.0-44.0); MEAN CORPUSCULAR HEMOGLOBIN 28.8 pg (28.0-32.0); MEAN CORPUSCULAR HGB CONC 34.7 g/dL (32.0-36.0); MEAN CORPUSCULAR VOLUME 83.1 fL (83.0-99.0); MEAN PLATELET VOLUME 8.6 fL (9.4-12.3); MONOCYTES ABSOLUTE AUTO 1.04 K/uL (0.00-0.80); MONOCYTES PERCENT AUTO 7.1 % (0.0-8.0); NEUTROPHILS PERCENT AUTO 79.3 % (41.0-71.0); PLATELET COUNT,PLT 315 K/uL (150-400); RED BLOOD CELL COUNT 5.31 M/uL (4.10-5.30); WHITE BLOOD CELL COUNT,WBC 14.74 K/uL (3.9-11.3)
[2024-01-15 18:50] LABS: A/G RATIO 0.9 (0.9-1.6); ALBUMIN 3.6 g/dL (3.4-5.0); CALCIUM 9.2 mg/dL (8.5-10.1); CREATININE 1.1 mg/dL (0.6-1.0); EST CRCL DRUG DOSING (CG) 42.48 mL/min; POTASSIUM,K 3.5 mmol/L (3.5-5.1); PROTEIN TOTAL,TP 7.7 g/dL (6.4-8.2)
[2024-01-15 18:59] LABS: CORONAVIRUS COVID-19 NAA NEGATIVE (NEGATIVE); INFLUENZA A NAA NEGATIVE (NEGATIVE); INFLUENZA B NAA NEGATIVE (NEGATIVE); RESPIRATORY SYNCYTIAL VIR NAA NEGATIVE (NEGATIVE)
[2024-01-15] MEDS ORDERED: Ondansetron 4 MG/2 ML SDV IVPUSH PRN (20:32)
[2024-01-15] MEDS ORDERED: Albuterol 0.083% 2.5 MG/3 ML Neb Soln NEB PRN (20:32)
[2024-01-15] MEDS ORDERED: Melatonin 3 MG Tab PO PRN (20:32)
[2024-01-15] MEDS ORDERED: Polyethylene Glycol 3350 Powder 17 GM Packet PO PRN (20:32)
[2024-01-15] MEDS ORDERED: oxyCODONE 5 MG Tab PO PRN (20:32)
[2024-01-15] MEDS: cefTRIAXone 1 GM in Sodium Chloride 0.9% 50 ML IV ONE (20:34)
[2024-01-15 20:59] LABS: HEMOGLOBIN A1C 5.2 %
[2024-01-15] MEDS: Pantoprazole 40 MG in Sodium Chloride 0.9% 10 ML IVPUSH SCH (22:11)
[2024-01-15] MEDS: Acetaminophen 325 MG Tab PO PRN (22:12)
[2024-01-15] MEDS: Albuterol/Ipratropium 3.0-0.5 MG/3 ML Neb Soln NEB SCH (22:13)
[2024-01-15] MEDS: Sodium Chloride 0.9% 1,000 ML IV SCH (22:14)
[2024-01-16] MEDS: Non-Formulary Medication 1 Each (Fluticasone/Salmeterol [Advair 500-50] 14 PUFF/DISKUS Dis INH SCH (00:06)
[2024-01-16] MEDS ORDERED: Pantoprazole 40 MG Tab.CR ONE (12:08)
[2024-01-16] MEDS ORDERED: Benzonatate 100 MG Cap ONE (12:08)
[2024-01-16] MEDS ORDERED: Cetirizine 10 MG Tab ONE (12:08)
[2024-01-16 16:16] LABS: CALCIUM 8.6 mg/dL (8.5-10.1); EST CRCL DRUG DOSING (CG) 46.72 mL/min; MAGNESIUM 2.2 mg/dL (1.8-2.4); POTASSIUM,K 3.7 mmol/L (3.5-5.1)
[2024-01-16 18:01] LABS: HEMATOCRIT 36.6 % (37.0-47.0); HEMOGLOBIN 12.7 g/dL (12.0-16.0); IMMATURE GRAN ABSOLUTE AUTO 0.04 K/uL (0.00-0.05); IMMATURE GRAN PERCENT AUTO 0.4 % (0.0-0.4); MEAN CORPUSCULAR HEMOGLOBIN 29.5 pg (28.0-32.0); MEAN CORPUSCULAR HGB CONC 34.7 g/dL (32.0-36.0); MEAN CORPUSCULAR VOLUME 85.1 fL (83.0-99.0); MEAN PLATELET VOLUME 8.9 fL (9.4-12.3); PLATELET COUNT,PLT 208 K/uL (150-400); WHITE BLOOD CELL COUNT,WBC 9.08 K/uL (3.9-11.3)
[2024-01-16] MEDS: cefTRIAXone 1 GM in Sodium Chloride 0.9% 50 ML IV SCH ×2 (18:01→21:01)
[2024-01-16] MEDS: Cetirizine 10 MG Tab ONE (21:02)
[2024-01-16] MEDS: Pantoprazole 40 MG Tab.CR ONE (21:02)
[2024-01-16] MEDS: Benzonatate 100 MG Cap ONE (21:02)
[2024-01-16] MEDS: Montelukast 10 MG Tab PO SCH (21:03)
[2024-01-16] MEDS: methylPREDNISolone Sodium Succinate 40 MG/1 ML SDV IVPUSH SCH (21:03)
[2024-01-16] MEDS: Formoterol/Mometasone 200-5 MCG 8.8 GM Inhaler INH SCH (21:03)
[2024-01-17] MEDS: Benzonatate 100 MG Cap PO PRN (02:54)
[2024-01-17] MEDS: BUPROPION 100 MG PO SCH (02:55)
[2024-01-17] MEDS: Pantoprazole 40 MG Tab.CR PO SCH (06:08)
[2024-01-17 06:10] LABS: BASOPHILS ABSOLUTE AUTO 0.01 K/uL (0.00-0.20); BASOPHILS PERCENT AUTO 0.1 % (0.0-1.0); HEMATOCRIT 33.7 % (37.0-47.0); HEMOGLOBIN 11.6 g/dL (12.0-16.0); IMMATURE GRAN ABSOLUTE AUTO 0.12 K/uL (0.00-0.05); IMMATURE GRAN PERCENT AUTO 0.8 % (0.0-0.4); LYMPHOCYTES ABSOLUTE AUTO 0.68 K/uL (1.00-4.80); LYMPHOCYTES PERCENT AUTO 4.5 % (24.0-44.0); MEAN CORPUSCULAR HEMOGLOBIN 29.1 pg (28.0-32.0); MEAN CORPUSCULAR HGB CONC 34.4 g/dL (32.0-36.0); MEAN CORPUSCULAR VOLUME 84.5 fL (83.0-99.0); MEAN PLATELET VOLUME 9.1 fL (9.4-12.3); MONOCYTES ABSOLUTE AUTO 0.55 K/uL (0.00-0.80); MONOCYTES PERCENT AUTO 3.6 % (0.0-8.0); NEUTROPHILS ABSOLUTE AUTO 13.74 K/uL (1.80-7.70); PLATELET COUNT,PLT 269 K/uL (150-400); RED BLOOD CELL COUNT 3.99 M/uL (4.10-5.30)
[2024-01-17 06:37] LABS: CALCIUM 8.7 mg/dL (8.5-10.1); CARBON DIOXIDE,CO2 25.4 mmol/L (21.0-32.0); CREATININE 0.9 mg/dL (0.6-1.0); EST CRCL DRUG DOSING (CG) 51.92 mL/min; MAGNESIUM 1.7 mg/dL (1.8-2.4); POTASSIUM,K 3.9 mmol/L (3.5-5.1)
[2024-01-17] MEDS: Cetirizine 10 MG Tab PO SCH (08:26)
[2024-01-17] MEDS: Magnesium Oxide 400 MG Tab PO ONE (13:20)
[2024-01-17] MEDS: guaiFENesin 600 MG Tab.ER PO SCH (13:20)
[2024-01-17] MEDS: Albuterol 0.083% 2.5 MG/3 ML Neb Soln NEB SCH (14:23)
[2024-01-17] MEDS: Magnesium Oxide 400 MG Tab PO SCH (20:37)
[2024-01-18 06:12] LABS: BASOPHILS ABSOLUTE AUTO 0.02 K/uL (0.00-0.20); BASOPHILS PERCENT AUTO 0.2 % (0.0-1.0); HEMATOCRIT 34.1 % (37.0-47.0); HEMOGLOBIN 11.5 g/dL (12.0-16.0); IMMATURE GRAN ABSOLUTE AUTO 0.17 K/uL (0.00-0.05); IMMATURE GRAN PERCENT AUTO 1.4 % (0.0-0.4); LYMPHOCYTES ABSOLUTE AUTO 1.05 K/uL (1.00-4.80); LYMPHOCYTES PERCENT AUTO 8.7 % (24.0-44.0); MEAN CORPUSCULAR HEMOGLOBIN 28.5 pg (28.0-32.0); MEAN CORPUSCULAR HGB CONC 33.7 g/dL (32.0-36.0); MEAN CORPUSCULAR VOLUME 84.4 fL (83.0-99.0); MEAN PLATELET VOLUME 8.5 fL (9.4-12.3); MONOCYTES ABSOLUTE AUTO 0.42 K/uL (0.00-0.80); MONOCYTES PERCENT AUTO 3.5 % (0.0-8.0); NEUTROPHILS ABSOLUTE AUTO 10.41 K/uL (1.80-7.70); NEUTROPHILS PERCENT AUTO 86.2 % (41.0-71.0); PLATELET COUNT,PLT 260 K/uL (150-400); RED BLOOD CELL COUNT 4.04 M/uL (4.10-5.30); WHITE BLOOD CELL COUNT,WBC 12.07 K/uL (3.9-11.3)
[2024-01-18 06:36] LABS: CALCIUM 8.5 mg/dL (8.5-10.1); CARBON DIOXIDE,CO2 26.2 mmol/L (21.0-32.0); EST CRCL DRUG DOSING (CG) 46.72 mL/min; MAGNESIUM 1.8 mg/dL (1.8-2.4); POTASSIUM,K 3.6 mmol/L (3.5-5.1)
[2024-01-18 12:21] VITALS: BP 135/96; PULSE 90
== END 2024-01-18 14:00 | disposition home or self-care (01) | DRG 133 ==
LOC: MW.ED 17:06 → MW.MS 21:15 → OBSVTOIN 01-17 12:30 → MW.MS 01-17 13:31
PROVIDERS: ADMIT Family Medicine; ATTEND Family Medicine
DX: J96.01 Acute respiratory failure with hypoxia (principal); J45.901 Unspecified asthma with (acute) exacerbation; J44.1 Chronic obstructive pulmonary disease with (acute) exacerbation; H54.7 Unspecified visual loss; K21.9 Gastro-esophageal reflux disease without esophagitis; F32.A Depression, unspecified; Z88.8 Allergy status to other drugs, medicaments and biological substances; Z79.51 Long term (current) use of inhaled steroids; Z79.52 Long term (current) use of systemic steroids; Z79.899 Other long term (current) drug therapy; Z87.11 Personal history of peptic ulcer disease; Z90.89 Acquired absence of other organs; Z90.49 Acquired absence of other specified parts of digestive tract; Z98.890 Other specified postprocedural states
CPT/HCPCS: 0241U; 36415; 71046; 71046-26; 80048; 80053; 83036; 83735; 84484; 85025; 85027; 93005; 94640; 94667; 94668; A9270-GY; J0696; J2470; J2919; J3475; J3490; J7030; J7620-GY

== ENCOUNTER 2024-09-20 11:40 | Emergency (ER) | payer BC ==
[2024-09-20 12:16] VITALS: BP 170/93
[2024-09-20] MEDS: Ondansetron 4 MG/2 ML SDV IVPUSH ONE (12:43)
[2024-09-20] MEDS: Sodium Chloride 0.9% 1,000 ML IV ONE ×2 (12:43→13:58)
[2024-09-20 12:45] LABS: BASOPHILS ABSOLUTE AUTO 0.04 K/uL (0.00-0.20); BASOPHILS PERCENT AUTO 0.7 % (0.0-1.0); EOSINOPHILS PERCENT AUTO 3.4 % (0.0-6.0); HEMATOCRIT 46.8 % (37.0-47.0); HEMOGLOBIN 16.7 g/dL (12.0-16.0); IMMATURE GRAN ABSOLUTE AUTO 0.02 K/uL (0.00-0.05); IMMATURE GRAN PERCENT AUTO 0.3 % (0.0-0.4); LYMPHOCYTES ABSOLUTE AUTO 1.69 K/uL (1.00-4.80); MEAN CORPUSCULAR HGB CONC 35.7 g/dL (32.0-36.0); MEAN CORPUSCULAR VOLUME 81.3 fL (83.0-99.0); MEAN PLATELET VOLUME 8.4 fL (9.4-12.3); MONOCYTES ABSOLUTE AUTO 0.72 K/uL (0.00-0.80); MONOCYTES PERCENT AUTO 12.3 % (0.0-8.0); NEUTROPHILS ABSOLUTE AUTO 3.16 K/uL (1.80-7.70); NEUTROPHILS PERCENT AUTO 54.3 % (41.0-71.0); PLATELET COUNT,PLT 293 K/uL (150-400); RED BLOOD CELL COUNT 5.76 M/uL (4.10-5.30); WHITE BLOOD CELL COUNT,WBC 5.83 K/uL (3.9-11.3)
[2024-09-20 13:13] LABS: CORONAVIRUS COVID-19 NAA NEGATIVE (NEGATIVE); INFLUENZA A NAA NEGATIVE (NEGATIVE); INFLUENZA B NAA NEGATIVE (NEGATIVE); RESPIRATORY SYNCYTIAL VIR NAA NEGATIVE (NEGATIVE)
[2024-09-20 13:42] LABS: A/G RATIO 1.1 (0.9-1.6); ALBUMIN 3.8 g/dL (3.4-5.0); BILIRUBIN TOTAL 0.4 mg/dL (0.2-1.0); CALCIUM 9.6 mg/dL (8.5-10.1); CARBON DIOXIDE,CO2 24.5 mmol/L (21.0-32.0); CREATININE 1.3 mg/dL (0.6-1.0); EST CRCL DRUG DOSING (CG) 35.94 mL/min; POTASSIUM,K 3.4 mmol/L (3.5-5.1); PROTEIN TOTAL,TP 7.2 g/dL (6.4-8.2)
[2024-09-20 14:28] LABS: APPEARANCE,URINE CLEAR; BILIRUBIN,URINE NEGATIVE (NEGATIVE); COLOR,URINE YELLOW; GLUCOSE,URINE NEGATIVE (NEGATIVE); KETONES,URINE TRACE mg/dL (NEGATIVE); LEUKOCYTE ESTERASE,URINE NEGATIVE (NEGATIVE); NITRITE,URINE NEGATIVE (NEGATIVE); OCCULT BLOOD,URINE NEGATIVE (NEGATIVE); PROTEIN,URINE TRACE mg/dL (NEGATIVE); UROBILINOGEN,URINE 0.2 EU/dL (<2.0)
[2024-09-20 14:37] LABS: BACTERIA,URINE NOT SEEN (NEGATIVE); EPITHELIAL CELLS,URINE RARE (NONE-FEW); RBC,URINE 0-1 (0-2/HPF)
[2024-09-20 14:38] LABS: CALCIUM OXALATE CRYSTALS,URINE RARE (NEGATIVE)
[2024-09-20 16:00] VITALS: PULSE 100
== END 2024-09-20 15:34 | disposition home or self-care (01) ==
LOC: MW.ED 11:40
DX: E86.0 Dehydration (principal); R19.7 Diarrhea, unspecified; J45.909 Unspecified asthma, uncomplicated; Z88.8 Allergy status to other drugs, medicaments and biological substances; Z79.899 Other long term (current) drug therapy; Z79.51 Long term (current) use of inhaled steroids; Z86.16 Personal history of COVID-19; Z90.49 Acquired absence of other specified parts of digestive tract; Z90.710 Acquired absence of both cervix and uterus
CPT/HCPCS: 0241U; 36415; 71046; 80053; 81001; 83605; 84484; 85025; 93005; 96361; 96374; 99284; J2405; J7030; 93010

== ENCOUNTER 2025-01-29 11:54 | Inpatient (IN) | payer BC ==
[2025-01-29] MEDS: methylPREDNISolone Sodium Succinate 125 MG/2 ML SDV IVPUSH ONE (12:24)
[2025-01-29] MEDS: Magnesium Sulfate 2 GM/50 mL 2 GM in Premix Bag 1 BAG IV ONE (12:24)
[2025-01-29 12:25] LABS: BASOPHILS ABSOLUTE AUTO 0.05 K/uL (0.00-0.20); BASOPHILS PERCENT AUTO 0.7 % (0.0-1.0); EOSINOPHILS ABSOLUTE AUTO 0.50 K/uL (0.00-0.45); EOSINOPHILS PERCENT AUTO 7.1 % (0.0-6.0); IMMATURE GRAN ABSOLUTE AUTO 0.03 K/uL (0.00-0.05); IMMATURE GRAN PERCENT AUTO 0.4 % (0.0-0.4); LYMPHOCYTES ABSOLUTE AUTO 2.43 K/uL (1.00-4.80); LYMPHOCYTES PERCENT AUTO 34.6 % (24.0-44.0); MEAN PLATELET VOLUME 8.4 fL (9.4-12.3); MONOCYTES ABSOLUTE AUTO 0.81 K/uL (0.00-0.80); MONOCYTES PERCENT AUTO 11.5 % (0.0-8.0); NEUTROPHILS ABSOLUTE AUTO 3.20 K/uL (1.80-7.70); NEUTROPHILS PERCENT AUTO 45.7 % (41.0-71.0); NRBC ABSOLUTE 0.00 K/uL (0.00-0.02); NRBC PERCENT 0.0 /100WBC (0.0-0.2); PLATELET COUNT,PLT 271 K/uL (150-400); RED BLOOD CELL COUNT 5.78 M/uL (4.10-5.30); WHITE BLOOD CELL COUNT,WBC 7.02 K/uL (3.9-11.3)
[2025-01-29 12:37] LABS: BLOOD UREA NITROGEN,BUN 15.0 mg/dL (7.0-18.0); CARBON DIOXIDE,CO2 28.4 mmol/L (21.0-32.0); CHLORIDE,CL 102.0 mmol/L (98-107); CREATININE 1.2 mg/dL (0.6-1.0); EST CRCL DRUG DOSING (CG) 38.44 mL/min; GLUCOSE RANDOM 96.0 mg/dL (74-106); POTASSIUM,K 4.6 mmol/L (3.5-5.1); SODIUM,NA 137.0 mmol/L (136-145)
[2025-01-29 12:41] LABS: BASE EXCESS VENOUS 5.5 (-2.0-3.0); BICARBONATE,VENOUS 30.0 mEq/L (22-29); PCO2 VENOUS 41.0 mmHG (41-51); PH,VENOUS 7.47 (7.32-7.43); PO2 VENOUS 45.0 mmHG (35-45)
[2025-01-29 12:46] LABS: ESTIMATED GFR 51.0 mL/min (>60)
[2025-01-29 12:47] LABS: LACTIC ACID 0.7 mmol/L (0.4-2.0)
[2025-01-29] MEDS ORDERED: Sodium Chloride 0.9% 10 ML Syringe FLUSH PRN (15:28)
[2025-01-29] MEDS ORDERED: Ondansetron 4 MG/2 ML SDV IVPUSH PRN (15:28)
[2025-01-29] MEDS ORDERED: Sodium Chloride 0.9% 2.5 ML Syringe FLUSH PRN (15:28)
[2025-01-29] MEDS: cefTRIAXone 1 GM in Water For Injection, Sterile 10 ML IVPUSH SCH (18:41)
[2025-01-30 06:15] LABS: BASOPHILS ABSOLUTE AUTO 0.01 K/uL (0.00-0.20); BASOPHILS PERCENT AUTO 0.1 % (0.0-1.0); EOSINOPHILS ABSOLUTE AUTO 0.00 K/uL (0.00-0.45); EOSINOPHILS PERCENT AUTO 0.0 % (0.0-6.0); IMMATURE GRAN ABSOLUTE AUTO 0.04 K/uL (0.00-0.05); IMMATURE GRAN PERCENT AUTO 0.3 % (0.0-0.4); LYMPHOCYTES ABSOLUTE AUTO 1.00 K/uL (1.00-4.80); LYMPHOCYTES PERCENT AUTO 8.7 % (24.0-44.0); MEAN PLATELET VOLUME 8.5 fL (9.4-12.3); MONOCYTES ABSOLUTE AUTO 0.69 K/uL (0.00-0.80); MONOCYTES PERCENT AUTO 6.0 % (0.0-8.0); NEUTROPHILS ABSOLUTE AUTO 9.81 K/uL (1.80-7.70); NEUTROPHILS PERCENT AUTO 84.9 % (41.0-71.0); NRBC ABSOLUTE 0.00 K/uL (0.00-0.02); NRBC PERCENT 0.0 /100WBC (0.0-0.2); PLATELET COUNT,PLT 226 K/uL (150-400); RED BLOOD CELL COUNT 4.57 M/uL (4.10-5.30); WHITE BLOOD CELL COUNT,WBC 11.55 K/uL (3.9-11.3)
[2025-01-30 06:50] LABS: A/G RATIO 1.0 (0.9-1.6); ALANINE AMINOTRANSFERASE,ALT 24.0 IU/L (14-63); ASPARTATE AMNIOTRANSFERASE,AST 19.0 IU/L (15-37); BILIRUBIN TOTAL 0.3 mg/dL (0.2-1.0); BLOOD UREA NITROGEN,BUN 18.0 mg/dL (7.0-18.0); CARBON DIOXIDE,CO2 25.1 mmol/L (21.0-32.0); CHLORIDE,CL 104.0 mmol/L (98-107); CREATININE 1.0 mg/dL (0.6-1.0); EST CRCL DRUG DOSING (CG) 46.13 mL/min; GLUCOSE RANDOM 131.0 mg/dL (74-106); POTASSIUM,K 4.1 mmol/L (3.5-5.1); PROTEIN TOTAL,TP 6.3 g/dL (6.4-8.2); SODIUM,NA 140.0 mmol/L (136-145)
[2025-01-30 07:03] LABS: ESTIMATED GFR 64.0 mL/min (>60)
[2025-01-30] MEDS: methylPREDNISolone Sodium Succinate 40 MG/1 ML SDV IVPUSH SCH ×2 (08:27→21:55)
[2025-01-30] MEDS ORDERED: Non-Formulary Medication 1 Each (Progesterone, Micronized [Progesterone] 100 MG Capsule) PO SCH (09:00)
[2025-01-30] MEDS ORDERED: BUPROPION 100 MG PO SCH (09:00)
[2025-01-30] MEDS: Benzocaine/Cetylpyridinium/Menthol Lozenge MUCMEM PRN (22:00)
[2025-01-31 06:20] LABS: BASOPHILS ABSOLUTE AUTO 0.02 K/uL (0.00-0.20); BASOPHILS PERCENT AUTO 0.1 % (0.0-1.0); EOSINOPHILS ABSOLUTE AUTO 0.00 K/uL (0.00-0.45); EOSINOPHILS PERCENT AUTO 0.0 % (0.0-6.0); IMMATURE GRAN ABSOLUTE AUTO 0.08 K/uL (0.00-0.05); IMMATURE GRAN PERCENT AUTO 0.5 % (0.0-0.4); LYMPHOCYTES ABSOLUTE AUTO 0.66 K/uL (1.00-4.80); LYMPHOCYTES PERCENT AUTO 4.4 % (24.0-44.0); MEAN PLATELET VOLUME 8.8 fL (9.4-12.3); MONOCYTES ABSOLUTE AUTO 0.17 K/uL (0.00-0.80); MONOCYTES PERCENT AUTO 1.1 % (0.0-8.0); NEUTROPHILS ABSOLUTE AUTO 14.19 K/uL (1.80-7.70); NEUTROPHILS PERCENT AUTO 93.9 % (41.0-71.0); NRBC ABSOLUTE 0.00 K/uL (0.00-0.02); NRBC PERCENT 0.0 /100WBC (0.0-0.2); PLATELET COUNT,PLT 241 K/uL (150-400); RED BLOOD CELL COUNT 4.73 M/uL (4.10-5.30); WHITE BLOOD CELL COUNT,WBC 15.12 K/uL (3.9-11.3)
[2025-01-31 07:05] LABS: A/G RATIO 1.0 (0.9-1.6); ALANINE AMINOTRANSFERASE,ALT 22.0 IU/L (14-63); ASPARTATE AMNIOTRANSFERASE,AST 17.0 IU/L (15-37); BILIRUBIN TOTAL 0.2 mg/dL (0.2-1.0); BLOOD UREA NITROGEN,BUN 22.0 mg/dL (7.0-18.0); CARBON DIOXIDE,CO2 27.2 mmol/L (21.0-32.0); CHLORIDE,CL 104.0 mmol/L (98-107); CREATININE 1.1 mg/dL (0.6-1.0); EST CRCL DRUG DOSING (CG) 41.94 mL/min; ESTIMATED GFR 57.0 mL/min (>60); GLUCOSE RANDOM 150.0 mg/dL (74-106); POTASSIUM,K 4.4 mmol/L (3.5-5.1); PROTEIN TOTAL,TP 6.7 g/dL (6.4-8.2); SODIUM,NA 140.0 mmol/L (136-145)
[2025-01-31 08:55] VITALS: BP 130/57; PULSE 93
== END 2025-01-31 12:20 | disposition home or self-care (01) | DRG 141 ==
LOC: MW.ED 11:54 → MW.MS 15:02
PROVIDERS: ADMIT Internal Medicine; ATTEND Internal Medicine
DX: J45.51 Severe persistent asthma with (acute) exacerbation (principal); H54.7 Unspecified visual loss; K21.9 Gastro-esophageal reflux disease without esophagitis; F32.A Depression, unspecified; Z90.49 Acquired absence of other specified parts of digestive tract; Z88.8 Allergy status to other drugs, medicaments and biological substances; Z98.890 Other specified postprocedural states; Z79.899 Other long term (current) drug therapy; Z90.710 Acquired absence of both cervix and uterus; Z87.891 Personal history of nicotine dependence
CPT/HCPCS: 36415; 71045; 71045-26; 80048; 80053; 82803; 82947; 83605; 83735; 84145; 84484; 85025; 87426-QW; 93005; 94640; 96365; 96375; 99285-25; A9270-GY; J0696; J1650; J2919; J3475; J7030